=== PATIENT | female | born 1945 ===

== ENCOUNTER 2018-04-12 11:05 | Emergency (ER) | payer OTHER ==
[~2018-04-12] VITALS: Ht 162.6 cm; Wt 67.1 kg
[2018-04-12] MEDS ORDERED: OMEGA 3 FISH O1 EACH (11:23)
[2018-04-12] MEDS ORDERED: LEVO-T25 MCG (11:23)
[2018-04-12] MEDS ORDERED: AVALIDE 300-121 EACH (11:23)
[2018-04-13] MEDS ORDERED: MECLIZINE HCL25 MG PO (14:31)
== END 2018-04-13 10:11 | disposition home or self-care (01) ==
LOC: ER 11:05
DX: R42 Dizziness and giddiness (principal); M54.2 Cervicalgia

== ENCOUNTER 2018-04-13 10:18 | Emergency (ER) | payer OTHER ==
[~2018-04-13] VITALS: Ht 162.6 cm; Wt 67.1 kg
[~2018-04-13 10:18] MED LIST: AVALIDE 300-121 EACH; LEVO-T25 MCG; OMEGA 3 FISH O1 EACH
[2018-04-13] MEDS ORDERED: MECLIZINE HCL25 MG PO (14:31)
== END 2018-04-13 14:45 | disposition home or self-care (01) ==
LOC: ER 10:18
DX: R42 Dizziness and giddiness (principal); I65.23 Occlusion and stenosis of bilateral carotid arteries
CPT/HCPCS: 70552